=== PATIENT | male | born 1975 | race African-American/Black ===

== ENCOUNTER 2019-07-18 15:23 | Emergency (ER) | payer MEDICAID ==
[~2019-07-18] VITALS: Ht 182.9 cm; Wt 113.4 kg
[2019-07-18 16:10] VITALS: BP 150/100
[2019-07-18] MEDS ORDERED: CARISOPRODOL 350 MG TAB PO ONE (17:15)
[2019-07-18] MEDS ORDERED: KETOROLAC TROMETH 60MG/2ML VIAL IM ONE (17:15)
== END 2019-07-18 17:52 | disposition home or self-care (01) ==
LOC: ER 15:34
DX: M54.5 Low back pain (principal); X50.1XXA Overexertion from prolonged static or awkward postures, initial encounter; Y93.89 Activity, other specified; Y92.89 Other specified places as the place of occurrence of the external cause; Y99.8 Other external cause status
CPT/HCPCS: 96372; 99283; J1885